=== PATIENT | male | born 1955 | race Caucasian/White ===

== ENCOUNTER 2016-10-28 15:23 | Emergency (ER) | payer MEDICARE ==
[~2016-10-28] VITALS: Ht 170.2 cm; Wt 73.0 kg
[2016-10-28 15:41] VITALS: BP 133/90; PULSE 85; RESP 18; TEMP 98.3; O2SAT 98
--- NOTE | 2016-10-28 16:21 | NUR ---
Patient triaged and placed in waiting room. VSS and patient appears in no acute distress at this time. awaiting available bed, and MD notified of need for MSE.
[2016-10-28 18:04] LABS: CALCIUM 8.9 mg/dL (8.4-11.0); CREATININE 0.85 mg/dL (0.55-1.30); POTASSIUM 3.7 mmol/L (3.5-5.1)
[2016-10-28 18:05] LABS: BASOPHILS % (AUTO) 0.8 % (0.0-2.0); EOSINOPHILS # (AUTO) 0.2 K/uL (0.0-0.4); EOSINOPHILS % (AUTO) 3.6 % (0.0-4.0); HEMATOCRIT 47.6 % (36-54); HEMOGLOBIN 15.1 g/dL (14.0-18.0); LYMPHOCYTES # (AUTO) 1.9 K/uL (1.0-5.5); MEAN CORPUSCULAR HEMOGLOBIN 26 pg (27-31); MEAN CORPUSCULAR HGB CONC 32 % (32-36); MEAN CORPUSCULAR VOLUME 80 fL (79.0-98.0); MONOCYTES # (AUTO) 0.4 K/uL (0.0-1.0); MONOCYTES % (AUTO) 6.6 % (1.7-9.3); NEUTROPHILS # (AUTO) 3.6 K/uL (1.8-7.7); PLATELET COUNT (AUTO) 337 K/uL (130-430); RED BLOOD CELL COUNT(AUTO) 5.94 MIL/uL (4.2-6.2); RED CELL DISTRIBUTION WIDTH 12.3 % (9.0-15.0); WHITE BLOOD COUNT (AUTO) 6.1 K/uL (4.8-10.8)
[2016-10-28 18:08] LABS: ALBUMIN 4.2 g/dL (3.4-4.8); TOTAL BILIRUBIN 0.6 mg/dL (0.0-1.0); TOTAL PROTEIN, SERUM 7.4 g/dL (6.4-8.3)
--- NOTE | 2016-10-28 18:27 | NUR ---
Patient to ER bed 1 to gown for evaluation. Side rails up. Report given to Kar PINTO.
--- NOTE | 2016-10-28 18:30 | NUR ---
Pt presents to Ed c/o abdpain.Pt received evaluation prior to main ED.Pt has no acute distress noted.urine specimen collected.
--- NOTE | 2016-10-28 18:35 | NUR ---
ER at bedside examining patient.
[2016-10-28 19:07] LABS: BILIRUBIN,URINE NEGATIVE (NEGATIVE); BLOOD, URINE NEGATIVE (NEGATIVE); CLARITY/URINE CLEAR (CLEAR); COLOR,URINE YELLOW (YELLOW); GLUCOSE,URINE NEGATIVE (NEGATIVE); KETONES,URINE TRACE (NEGATIVE); LEUKOCYTE ESTERASE ,URINE NEGATIVE (NEGATIVE); NITRITE, URINE NEGATIVE (NEGATIVE); PH,URINE 8.5 (5.0-8.0); PROTEIN URINE NEGATIVE (NEGATIVE); UROBILINOGEN,URINE 0.2 (0.2-1.0)
[2016-10-28] MEDS ORDERED: MAGNESIUM CITRATE 300 ML ORAL SOLUTION PO ONE (19:15)
--- NOTE | 2016-10-28 19:15 | NUR ---
pt recieving mag.citrate.
[2016-10-28 19:30] VITALS: BP 128/88; PULSE 82; RESP 18; TEMP 98.3; O2SAT 98
--- NOTE | 2016-10-28 19:30 | NUR ---
Patient given written and verbal discharge instructions and verbalizes understanding. ER MD discussed with patient the results and treatment provided. Patient in stable condition. ID arm band removed. Patient educated on pain management and to follow up with PMD. Pain Scale 0 Opportunity for questions provided and answered.
--- NOTE | 2016-10-29 10:22 | NUR ---
RECEIVED FINAL REPORT DISCREPTANCY, CALLED FOR DR HANSON AND LEFT MESSAGE FOR PT TO CALL BACK. AT NUMBER [phone]
== END 2016-10-28 19:30 | disposition home or self-care (01) ==
LOC: SED 15:23
DX: R10.32 Left lower quadrant pain (principal); I10 Essential (primary) hypertension
CPT/HCPCS: 36415; 80053; 81003; 83605; 83690-TC; 85025; 85610-TC; 87040-TC; 99285